=== PATIENT | female | born 1995 | race Hispanic/Latino ===

== ENCOUNTER 2019-05-08 18:10 | Emergency (ER) | payer OTHER, SELFPAY ==
[2019-05-08] MEDS ORDERED: Adacel (T-DAP) 0.5 ML SYRINGE ONE (18:46)
[2019-05-08] MEDS ORDERED: Lidocaine 1% w/Epinephrine 1:100K 20 ML VIAL ONE (18:46)
--- NOTE | 2019-05-08 19:30 | RAD ---
RIGHT HAND THREE VIEWS: HISTORY: Hand pain. FINDINGS: There are no signs of fracture or dislocation. Joint spaces appear fairly well preserved. IMPRESSION: Unremarkable right hand. POS: [facility]
== END 2019-05-08 19:43 | disposition home or self-care (01) ==
LOC: ERS 18:10
DX: S01.81XA Laceration without foreign body of other part of head, initial encounter (principal); S41.152A Open bite of left upper arm, initial encounter; S41.151A Open bite of right upper arm, initial encounter; S60.011A Contusion of right thumb without damage to nail, initial encounter; F41.9 Anxiety disorder, unspecified; F32.9 Major depressive disorder, single episode, unspecified; F17.210 Nicotine dependence, cigarettes, uncomplicated; Z79.899 Other long term (current) drug therapy; Y04.1XXA Assault by human bite, initial encounter
CPT/HCPCS: 12051; 90471; 90715; J2001

== ENCOUNTER 2021-07-30 14:32 | Emergency (ER) | payer SELFPAY | END 2021-07-30 17:18 | disposition left against medical advice (07) | LOC: ERS 14:32 | DX: Z53.21 Procedure and treatment not carried out due to patient leaving prior to being seen by health care provider (principal) ==

== ENCOUNTER 2021-11-30 13:08 | Emergency (ER) | payer SELFPAY | END 2021-11-30 13:49 | disposition short-term general hospital (02) | LOC: ERS 13:08 | DX: O75.82 Onset (spontaneous) of labor after 37 completed weeks of gestation but before 39 completed weeks gestation, with delivery by (planned) cesarean section (principal); O99.333 Smoking (tobacco) complicating pregnancy, third trimester; F17.290 Nicotine dependence, other tobacco product, uncomplicated; Z3A.38 38 weeks gestation of pregnancy | CPT/HCPCS: 99284 ==